=== PATIENT | male | born 1975 | race Caucasian/White ===

== ENCOUNTER 2023-11-04 10:24 | Outpatient (CLI) | payer OTHER, SELFPAY | END 2023-11-04 10:25 | disposition home or self-care (01) | PROVIDERS: PCP Family Medicine; Visit Provider Family Medicine | DX: Z13.228 Encounter for screening for other metabolic disorders (principal); Z13.220 Encounter for screening for lipoid disorders; Z11.59 Encounter for screening for other viral diseases | CPT/HCPCS: 80053; 80061; 86803 ==

== ENCOUNTER 2024-09-07 09:53 | Outpatient (CLI) | payer OTHER, SELFPAY ==
--- NOTE | 2024-10-06 08:23 | W.PM.SLEEP ---
Sleep Study Details Details Interpreting Provider: Elena Date of Sleep Study: 09/07/24 Sleep Study Details: STUDY TYPE:? Home unattended ? BMI:? 26.9 ORDERING PROVIDER:? Elena INDICATION:? Concern about sleep appy ? SLEEP SUMMARY:? 517 minutes monitored RESPIRATORY SUMMARY:? AHI 5 Low oxygen 87 1.7% of study oxygen less than 90% Snoring 68.6% PERIODIC LIMB MOVEMENTS OF SLEEP:? Not recorded CARDIAC:? Range 42-89, mean 53.8 beats per minute IMPRESSION:? Mild obstructive sleep apnea with significant desaturations RECOMMENDATION: Treatment options include CPAP dental appliance and/or airway expansion surgery.
== END 2024-09-07 09:54 | disposition home or self-care (01) ==
LOC: SLEEP 09:54
PROVIDERS: PCP Family Medicine; Visit Provider Otolaryngology
DX: G47.33 Obstructive sleep apnea (adult) (pediatric) (principal)
CPT/HCPCS: 95806